=== PATIENT | female | born 1945 | race Caucasian/White ===

== ENCOUNTER → 2023-10-09 13:07 | Outpatient (REF) | payer MEDICARE, OTHER, SELFPAY | LOC: MRI 3T 13:07 | PROVIDERS: ATTENDING PHYSICIAN Physician Assistant Medical; FAMILY PHYSICIAN Family Medicine; REFERRING PHYSICIAN Psychiatry & Neurology Neurology | DX: D32.9 Benign neoplasm of meninges, unspecified (principal) | CPT/HCPCS: 70553; A9575 ==

== ENCOUNTER → 2023-11-25 12:54 | Outpatient (REF) | payer MEDICARE, OTHER, SELFPAY ==
--- NOTE | 2023-11-25 13:56 | PTCARENOTE ---
agitated saline contrast echo completed, new IV 22P 1st attempt LAC, 3 separate injections of agitated saline under direction echo. images obtained. tolerated. site removed, pt left department after completion of test.
== END ==
LOC: RCS 12:54
PROVIDERS: ATTENDING PHYSICIAN Psychiatry & Neurology Neurology; FAMILY PHYSICIAN Family Medicine
DX: H53.2 Diplopia (principal)
CPT/HCPCS: 93306

== ENCOUNTER 2024-03-07 16:55 | Emergency (ER) | payer MEDICARE, OTHER, SELFPAY ==
[2024-03-07 17:02] VITALS: BP 129/67
--- NOTE | 2024-03-07 17:32 | ED.GENMED ---
History of Present Illness
General
Chief Complaint: Eye Problems
Source: patient and spouse
Time Seen by Provider: 03/07/24 17:16
History of Present Illness
History of Present Illness:
78-year-old female states that on Friday she started to 'feel something' in the left lower lid of her eye associated with slight redness. She thought it might be conjunctivitis. However, since that time, she has noted increasing discomfort and
swelling. She saw her doctor yesterday and was diagnosed with a 'stye' and was recommended to do warm compresses and take antibiotic drops which she is doing. She is applying warm compresses at least every few hours for at least 10 minutes at a
time. She got concerned today because the stye looks bigger to her and she is due to leave for a trip to [facility] tomorrow. She denies periorbital redness swelling or pain, fever, chills, visual changes. She denies headache, drainage, URI symptoms,
or other complaints. Patient has had several styes in the past years. She does not wear contacts or glasses.
Past History
Past History
ED Past Medical History: Other (Meningioma, hyperlipidemia)
ED Past Surgical History: Gynecological and Orthopedic
Social History
Tobacco: Non-smoker
Alcohol: Occasional
Drug: None
Personal:
Living: with family
Phy Exam
Physical Exam
Physical Exam:
GENERAL: Alert , in no apparent distress
EYE: pupils equal and reactive, no photophobia, no nystagmus, EOMI. There is an obvious hordeolum noted at the left lower lid without active drainage, minimally tender to palpation. No surrounding redness warmth tenderness fluctuance or other
abnormalities to suggest associated soft tissue cellulitis
NECK: Supple, no significant adenopathy.
ENT: o/p clr, mmm.
CARDIAC: Regular rate and rhythm .
LUNGS: Clear breath sounds bilaterally, no acute respiratory distress, no wheezes/rales/rhonchi
NEUROLOGICAL: Alert and oriented, nonfocal
SKIN: Warm and dry, skin intact.
MUSCULOSKELETAL: No edema, well perfused.
PSYCH: Normal and appropriate interaction.
Course
Vital Signs
Initial and Last Documented VS:
Initial Vital Signs
Temp Pulse Resp BP Pulse Ox
98.5 F 80 16 129/67 98
03/07/24 17:02 03/07/24 17:02 03/07/24 17:02 03/07/24 17:02 03/07/24 17:02
Last Documented Vital Signs
Temp Pulse Resp BP Pulse Ox
98.5 F 80 16 129/67 98
03/07/24 17:02 03/07/24 17:02 03/07/24 17:02 03/07/24 17:02 03/07/24 17:02
*Critical Care Note
Total Time (30-74mins, 75-104mins- exclusive of procedures): Not Applicable
Update Note
Update Note:
Patient presents to the Emergency Department with left eye stye
Number and Complexity of Problems Addressed at the Encounter
� Chronic conditions affecting care:
� Acute Exacerbation and/or Progression of Chronic Illness:
� Differential Diagnosis includes: But not limited to hordeolum, chalazion, conjunctivitis, preseptal cellulitis, etc.
Amount and/or Complexity of Data to be Reviewed and Analyzed
� I performed an independent evaluation of and my interpretation is:
EKG:
CT:
Xrays:
Laboratory Studies:
Other:
� Review of other/old records reveals:
� Clinical information was obtained by an independent historian: who is bedside
� Prescriptions/Medications Considered but not given:
� Further testing considered but not performed:
Risk of Complications and/or Morbidity or Mortality of Patient Management
� Social determinants of health affecting care:
� Discussion with other providers (PCP, Hospitalists, Consultants, etc):
� Escalation of care including admission/observation vs risk of discharge considered: Discussed with patient and emphasis on continued warm compresses, and also antibiotic drops. I do not identify further management
recommendations that would be recommended at this time, no secondary consequences of the stye such as cellulitis. Exam otherwise normal. Patient aware of importance of continued treatment and reasons to return to the ER.
ED Attending Note
-
Portions of this chart may have been created with voice recognition software.� Occasional wrong word or��sound alike� substitutions may have occurred due to the inherent limitations of voice recognition software.
Discharge Plan
Departure
Patient Disposition: Home (Routine Discharge)
Date of Disposition: 03/07/24
Time of Disposition: 17:36
Patient with high blood pressure during this ER visit?: Yes
Condition: Good
Discharge Problem:
Hordeolum
Instructions: Stye, BLOOD PRESSURE
Prescriptions:
No Action
atorvastatin
10 mg PO HS
Activity Restrictions/Additional Instructions:
PLEASE CONTINUE TO APPLY WARM COMPRESSES, 10 TO 15 MINUTES AT A TIME, 4-6 TIMES A DAY. CONTINUE ANTIBIOTIC DROPS. IF YOU DEVELOP REDNESS WARMTH SWELLING OR PAIN SURROUNDING THE EYE, VISUAL CHANGES, INCREASING SWELLING OF YOUR EYELID, DOUBLE
VISION, BLURRY VISION, SEVERE HEADACHE, VOMITING, OR OTHER WORRISOME SIGNS, PLEASE RETURN TO THE ER IMMEDIATELY.
Discharge Date and Time
Print Language: PALAUAN
== END 2024-03-07 18:23 | disposition home or self-care (01) ==
LOC: EMR 16:55
PROVIDERS: EMERGENCY PHYSICIAN Emergency Medicine; FAMILY PHYSICIAN Family Medicine
DX: H00.015 Hordeolum externum left lower eyelid (principal); E78.00 Pure hypercholesterolemia, unspecified
CPT/HCPCS: 99282

== ENCOUNTER → 2024-04-08 11:59 | Outpatient (REF) | payer MEDICARE, OTHER, SELFPAY | LOC: MRI 3T 11:59 | PROVIDERS: ATTENDING PHYSICIAN Neurological Surgery; PRIMARYCARE PHYSICIAN Family Medicine; REFERRING PHYSICIAN Psychiatry & Neurology Neurology | DX: D32.9 Benign neoplasm of meninges, unspecified (principal); H53.2 Diplopia | CPT/HCPCS: 70553; A9575 ==

== ENCOUNTER → 2024-05-18 13:05 | Outpatient (REF) | payer MEDICARE, OTHER, SELFPAY | LOC: WDC 13:05 | PROVIDERS: ATTENDING PHYSICIAN Family Medicine | DX: Z12.31 Encounter for screening mammogram for malignant neoplasm of breast (principal); M25.562 Pain in left knee | CPT/HCPCS: 73564; 77063; 77067 ==

== ENCOUNTER → 2025-04-20 12:27 | Outpatient (REF) | payer MEDICARE, OTHER, SELFPAY | LOC: PAVMRI 12:27 | PROVIDERS: ATTENDING PHYSICIAN Physician Assistant Medical; FAMILY PHYSICIAN Family Medicine | DX: D32.9 Benign neoplasm of meninges, unspecified (principal) | CPT/HCPCS: 70553; A9575 ==

== ENCOUNTER → 2025-05-18 15:38 | Outpatient (REF) | payer MEDICARE, OTHER, SELFPAY | LOC: WDC 15:38 | PROVIDERS: ATTENDING PHYSICIAN Family Medicine | DX: Z12.31 Encounter for screening mammogram for malignant neoplasm of breast (principal) | CPT/HCPCS: 77063; 77067 ==